=== PATIENT | female | born 1980 | race Two or more races ===

== ENCOUNTER 2017-09-22 15:05 | Emergency (ER) | payer SELFPAY ==
[2017-09-22] MEDS ORDERED: ACETAMINOPHEN 325 MG PO ONE (15:27)
[2017-09-22] MEDS ORDERED: ACETAMINOPHEN 325 MG ONE (15:28)
[2017-09-22 15:34] VITALS: BP 113/87; PULSE 83; RESP 16; TEMP 98; O2SAT 100
[2017-09-22 16:43] LABS: BASOPHILS % (AUTO) 1 % (0-3); EOSINOPHILS % (AUTO) 3 % (0-9); HEMATOCRIT 37 % (35-47); MEAN CORPUSCULAR VOLUME 90 fL (81-99); MONOCYTES % (AUTO) 4.2 % (0-12); NEUTROPHILS % (AUTO) 73.2 % (37-80)
[2017-09-22 16:52] LABS: ALBUMIN 3.6 gm/dl (3.4-5.0)
[2017-09-22] MEDS ORDERED: APAP/HYDROCODONE 325/5 TAB PO ONE (17:35)
[2017-09-22] MEDS ORDERED: APAP/HYDROCODONE 325/5 TAB ONE (17:36)
== END 2017-09-22 18:29 | disposition home or self-care (01) | DRG 923 ==
LOC: ED 15:05
DX: T74.11XA Adult physical abuse, confirmed, initial encounter (principal); J34.89 Other specified disorders of nose and nasal sinuses; S05.12XA Contusion of eyeball and orbital tissues, left eye, initial encounter; Y09 Assault by unspecified means; M54.2 Cervicalgia
CPT/HCPCS: 36415; 70450; 72125; 80053; 85025; 85610; 99284; A9270-GY